=== PATIENT | male | born 1955 | race Caucasian/White ===

== ENCOUNTER 2023-10-27 15:35 | Emergency (ER) | payer MEDICARE, OTHER, SELFPAY ==
--- NOTE | ~2023-10-27 | XR_ITS ---
EXAMINATION: XR chest 2V Exam Date/Time: 10/27/2023 16:15 [facility] HISTORY: PAIN UPON INSPIRATION, COUGH Comparison: None. RESULT: Lines, tubes, and devices: Left chest pacer with intact leads. Lungs and pleura: Right lower lung granuloma. Subsegmental airspace disease in the posterior left lo wer lobe. Cardiomediastinal silhouette: Stable. Other: No acute osseous or upper abdominal finding. IMPRESSION: Subsegmental left lower lobe airspace disease may represent atelectasis or pneumonia. Reviewed, dictated and finalized at location [facility] IMPRESSION: Subsegmental left lower lobe airspace disease may represent atelectasis or pneu monia.
[2023-10-27 16:00] VITALS: BP 133/74; PULSE 80; RESP 16; TEMP 37.1; O2SAT 97
--- NOTE | 2023-10-27 16:12 | ED.URI ---
HPI - URI/Sore Throat General Chief Complaint: Upper Respiratory Infection Stated Complaint: congestion,fever,cough Time Seen by Provider: 10/27/23 15:42 Source: patient Mode of arrival: ambulatory Limitations: no limitations History of Present Illness HPI Narrative: Gus is a 68-year-old male patient presenting to the clinic today with complaints of fever highest of 100.9, congestion, and cough x3 days. States he has a history of bronchitis. Complaints of lung pain when taking a deep breath. MD elicited complaint: fever, cough and nasal congestion Review of Systems Review of Systems: Pertinent positives per HPI. Patient denies any rash, headache, visual changes, dizziness,chest pain, palpitations, nausea, vomiting, diarrhea, constipation, abdominal pain, or any urinary issues. PMFSH Comments At the time of my signature, I reviewed and agree with the nursing past medical, surgical, social, and family history. There is no relevant family history pertinent to the patient complaint. Exam Narrative: General: Well-developed, well nourished, in no apparent distress Head: Normocephalic, atraumatic Eyes: Pupils equally round and reactive to light bilaterally, EOM intact, sclera and conjunctive clear, no discharge, lids normal Ears: TMs intact and clear, ear canals clear, no drainage, grossly hearing normal. Nose: Nares patent, clear nasal discharge, no inflammation, no sinus tenderness. Mouth: Oral pharynx without lesions or masses, good dentition, MMM. Neck: Supple, trachea midline, no enlargement of anterior or posterior cervical nodes, no thyroid masses or goiter palpable. Cardio: Regular rate and rhythm, s1 and s2 normal, no murmur appreciated. Resp: Mild rhonchi in the upper airway with crackles to the left lower lobe, no wheezing or rubs Course Course Emergency Course: Portions of this record may have been created with voice recognition software. Level of Care: Express Care Visit Vital Signs Vital signs: Vital Signs Temperature 37.1 C 10/27/23 16:00 Pulse Rate 80 10/27/23 16:00 Respiratory Rate 16 10/27/23 16:00 Blood Pressure 133/74 10/27/23 16:00 Pulse Oximetry 97 10/27/23 16:00 Oxygen Delivery Room Air 10/27/23 16:00 Temperature 37.1 C 10/27/23 16:00 Pulse Rate 80 10/27/23 16:00 Respiratory Rate 16 10/27/23 16:00 Blood Pressure 133/74 10/27/23 16:00 Pulse Oximetry 97 10/27/23 16:00 Oxygen Delivery Room Air 10/27/23 16:00 Vital signs reviewed MDM - URI/Sore Throat MDM Narrative Medical decision making narrative: At the time of visit patient is resting comfortably on the exam table. Patient appears to be nontoxic. COVID and influenza testing was performed. Chest x-ray was performed and shows left lower lobe pneumonia versus atelectasis. Prescription for azithromycin, Augmentin, and albuterol inhaler was sent to the pharmacy. Supportive measures were discussed with the patient and they voiced understanding discharge instructions and agrees to treatment plan. Return precautions reviewed Differential Diagnosis Differential diagnosis: Likely upper respiratory infection, otitis media, sinusitis, viral infection (Pneumonia, COVID), bronchitis, influenza, pharyngitis and other (COVID) Discharge Plan Discharge Clinical Impression: Pneumonia Patient Disposition: Home, Self-Care Condition: Stable Instructions: Antibiotic Form, Pneumonia (ED) Additional Instructions: COVID and influenza testing was negative Chest x-ray shows left lower lobe pneumonia versus atelectasis Take prescription medications only as prescribed-albuterol inhaler, azithromycin, and Augmentin. Increase fluids and stay well hydrated Tylenol/motrin for pain/fever Flonase and OTC antihistamines as directed Vicks vapor rub to open sinuses Sinus rinses for congestion Cepacol spray, cough drops, throat lozenges, warm tea with honey/lemon, gargle salt water to soothe
== END 2023-10-27 17:05 | disposition home or self-care (01) ==
PROVIDERS: Emergency Provider Nurse Practitioner Family
DX: J18.9 Pneumonia, unspecified organism (principal); Z20.822 Contact with and (suspected) exposure to COVID-19
CPT/HCPCS: 71046; 87426; 87804; 99213; C9803; G0463

== ENCOUNTER 2024-03-25 11:53 | Emergency (ER) | payer MEDICARE, OTHER, SELFPAY ==
--- NOTE | 2024-03-25 11:55 | ED.ABDPAIN ---
HPI - Abdominal Pain General Chief Complaint: Abdominal Pain Stated Complaint: abdominal pain Time Seen by Provider: 03/25/24 11:54 Source: patient Mode of arrival: ambulatory Limitations: no limitations History of Present Illness HPI narrative: Gus is a 68-year-old male patient presenting to the clinic today with complaints of left-sided abdominal pain since Saturday night. 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 He denies any fever, chills, or body aches. Last bowel movement was 2 days ago. States this is not abnormal for him. Denies any blood in his stool. No history of Crohn's or ulcerative colitis. States he feels bloated. Denies any nausea or vomiting. No urinary symptoms. Related Data Allergies Allergy/AdvReac Type Severity Reaction Status Date / Time [id number] Reductase AdvReac Other Verified 03/25/24 12:08 Inhibitor Review of Systems Review of Systems: Pertinent positives per HPI. Patient denies any fever, chills, rash, headache, visual changes, dizziness, cough, runny nose, sore throat, shortness of breath, chest pain, palpitations, nausea, vomiting, diarrhea, constipation, or any urinary issues. PMFSH Comments At the time of my signature, I reviewed and agree with the nursing past medical, surgical, social, and family history. There is no relevant family history pertinent to the patient complaint. Exam Narrative: General: Well-developed, well nourished, in no apparent distress. Head: Normocephalic, atraumatic. Cardio: Regular rate and rhythm, s1 and s2 normal, no murmur appreciated. Resp: Clear to auscultation bilaterally, no rhonchi, rales, wheezing or rubs. Abdomen: Soft, pliable, bowel sounds present in all quadrants, palpable/reducible abdominal (ventral) hernia tender to palpation over the left upper and left lower abdominal quadrants, no organomegly, no CVAT tenderness. Course Course Emergency Course: Portions of this record may have been created with voice recognition software. Level of Care: Express Care Visit Vital Signs Vital signs: Vital signs reviewed Transfer Transfered to: [facility] Transportation: Other (Private car) Transfer rationale: Left-sided abdominal pain will out diverticulitis, obstructive, new abdominal hernia Accepting physician: Dr. Oneal Transfer comments: Private car MDM - Abdominal Pain MDM Narrative Medical decision making narrative: At the time of visit patient is resting comfortably on the exam table. Patient appears to be nontoxic. Plan: Patient has left sided abdominal pain with history of diverticulitis and mixed IBS. Does appear to have a new onset abdominal hernia. Recommend transfer to the ER for further evaluation. Patient would like to be transfer to [facility] in [place], [place]. Report called to the charge nurse and Dr. Oneal accepted patient for transfer. Differential Diagnosis Differential diagnosis: Likely abdominal pain, acute appendicitis, calculus of kidney, constipation, diverticulitis, gastroenteritis, pancreatitis and small bowel obstruction Discharge Plan Discharge Clinical Impression: Left sided abdominal pain Abdominal hernia Qualifiers: Hernia type: ventral Obstruction and gangrene presence: without obstruction or gangrene Qualified Code(s): K43.9 - Ventral hernia without obstruction or gangrene Patient Disposition: Acute Care Hospital Condition: Stable Prescriptions: No Action azithromycin 250 mg tablet See Rx Instructions .ROUTE .COMPLEX Qty: 6 0RF Rx Instructions: For 250 mg dose pack: take 500 mg today (day 1), then 250 mg for 4 days (days 2-5) albuterol sulfate 90 mcg/actuation HFA aerosol inhaler 2 puff inhalation Q4-6H PRN (Reason: shortness of breath or wheezing) 30 Days Qty: 8.5 0RF amoxicillin-pot clavulanate 875-125 mg tablet 1 tablet PO Q12H 7 Days Qty: 14 0RF Follow-up/Referrals: [facility] [Primary Care Provider]
[2024-03-25 12:04] VITALS: BP 109/59; PULSE 83; RESP 20; TEMP 37; O2SAT 98
== END 2024-03-25 12:21 | disposition short-term general hospital (02) ==
PROVIDERS: Emergency Provider Nurse Practitioner Family
DX: R10.12 Left upper quadrant pain (principal); R10.32 Left lower quadrant pain; K43.9 Ventral hernia without obstruction or gangrene
CPT/HCPCS: 99212; G0463